=== PATIENT | female | born 1975 | race Two or more races ===

== ENCOUNTER 2024-04-13 17:59 | Emergency (ER) | payer OTHER, SELFPAY ==
[2024-04-13 18:02] VITALS: BP 108/73
--- NOTE | 2024-04-13 20:01 | ED.MUSCINJ ---
HPI-Injury
General
Chief Complaint: Musculo-Skeletal Complaint
Source: patient
Exam Limitations: none
Time Seen by Provider: 04/13/24 19:52
History of Present Illness-Injury
Initial Injury comments:
48-year-old otherwise healthy female presents complaining of left ankle and foot pain starting today. She twisted her ankle while at work. She noted progressively worsening pain and swelling to left foot and ankle. She is now unable to bear
weight secondary to pain. No other complaints at this time
Phy Exam
Physical Exam
Physical Exam:
General: Well-appearing female no acute respiratory distress
Musculoskeletal exam: Left ankle swollen tender inferior to the distal fibula laterally and slightly tender over the medial aspect of the ankle. She has good plantarflexion dorsiflexion is to 90 degrees. The foot and midfoot are nontender. The
knee is nontender
Vascular: Left foot is warm to the touch with brisk capillary refill to the toes
Ext: no cyanosis
Injury Course
Orders/Labs/Results
Orders:
Orders
04/13/24 18:05
Ankle, left 3 view CR [CR Ankle - Left Min 3 Views ] Urgent
Comment:
Reason For Exam: fall, pain , swelling
Foot, Left 3 View [CR Foot - Left Min 3 Views] Urgent
Comment:
Reason For Exam: fall, pain, swelling
04/13/24 20:00
Ortho Boot Left- Treatment ONCE
Short or tall?: Tall
MDM/Problems Addressed
Differential Diagnosis Includes:
Left foot and ankle pain. Consider sprain versus fracture wrist dislocation I personally visualized x-rays of the left ankle and foot which are negative for acute fracture or dislocation. Suspect underlying sprain. The patient is unable to bear
weight secondary to the pain. Will fit for orthopedic boot and have her follow-up with orthopedics.
*Critical Care Note
Total Time (30-74mins, 75-104mins- exclusive of procedures): Not Applicable
ED Attending Note
-
Portions of this chart may have been created with voice recognition software.� Occasional wrong word or��sound alike� substitutions may have occurred due to the inherent limitations of voice recognition software.
Discharge Plan
Departure
Patient Disposition: Home (Routine Discharge)
Date of Disposition: 04/13/24
Time of Disposition: 20:05
Patient with high blood pressure during this ER visit?: No
Discharge Problem:
Ankle sprain
Instructions: Muscle and Bone Pain (DC)
Prescriptions:
No Action
Flovent Diskus 50 mcg/actuation blister with device
2 inh inhalation BID Qty: 60 0RF
Referrals:
NONE,* [Family Provider] -
Natanael Crespo MD [Active] -
Activity Restrictions/Additional Instructions:
Rest. Elevate for swelling. Use boot for ambulation. You may use ibuprofen or Tylenol for pain. Follow-up with orthopedics for further evaluation.
Interventions
Interventions:
*Risk Screen - Suicide Last Done: 04/13/24 18:02
*General Assessment Last Done: 04/13/24 18:02
*Neglect/Abuse Screening Last Done: 04/13/24 18:02
ED- Fall Risk Assessment Last Done: 04/13/24 20:06
*Nursing Disposition Last Done: 04/13/24 20:37
ED-Musculoskeletal Assessment Last Done: 04/13/24 20:06
Discharge Date and Time
Discharge Date/Time: 04/13/24 21:02
Print Language: [id number]
[2024-04-13 20:37] VITALS: BP 110/73
== END 2024-04-13 21:02 | disposition home or self-care (01) ==
LOC: EMR 17:59
PROVIDERS: EMERGENCY PHYSICIAN Emergency Medicine
DX: S93.402A Sprain of unspecified ligament of left ankle, initial encounter (principal); X50.1XXA Overexertion from prolonged static or awkward postures, initial encounter; Y93.89 Activity, other specified; Y92.89 Other specified places as the place of occurrence of the external cause; Y99.0 Civilian activity done for income or pay
CPT/HCPCS: 99283; 29515; 73610; 73630

== ENCOUNTER → 2024-07-11 12:40 | Outpatient (REF) | payer OTHER, SELFPAY | LOC: WDC 12:40 | DX: Z12.31 Encounter for screening mammogram for malignant neoplasm of breast (principal) | CPT/HCPCS: 77063; 77067 ==

== ENCOUNTER 2024-09-05 13:51 | Emergency (ER) | payer OTHER, SELFPAY ==
[2024-09-05 13:57] VITALS: BP 126/75
--- NOTE | 2024-09-05 15:25 | ED.GENMED ---
History of Present Illness
General
Chief Complaint: Musculo-Skeletal Complaint
Source: patient
Exam Limitations: none
Time Seen by Provider: 09/05/24 14:10
Nursing documentation reviewed up to this point in time: agreed with
History of Present Illness
History of Present Illness:
Patient is a 49-year-old female who presents to the ER after falling injuring her right wrist. Patient reports she was walking her dog when this occurred. She denies any other complaints. She is left-hand dominant. She denies hitting her head.
Review of Systems
Review of Systems
Allergies reviewed?: Yes
All Other Systems: ROS reviewed and negative except as documented in HPI and ROS
Constitutional: Reports no symptoms
Musculoskeletal: Reports other (Right wrist injury)
Skin: Reports no symptoms
Psychiatric: Reports no symptoms
Phy Exam
General Physical Exam
General Presentation: no apparent distress
General age: appears stated age
General Skin: warm and dry
General Habitus: normal
General Mental: alert
Neurological Exam
Neurological Exam: alert
Musculoskeletal Exam
Musculoskeletal Exam: other (Right wrist with mild deformity obvious swelling strong pulses tender throughout the distal radius; normal distal sensation normal capillary refill)
Skin Exam
Skin Exam: normal color and warm/dry
Psychiatric Exam
Psychiatric Exam: normal mood/affect
Course
Orders/Labs/Results
Orders:
Orders
09/05/24 13:59
CR Wrist - Right Min 3 Views Urgent
Comment:
Reason For Exam: injury, pain
09/05/24 15:33
Ibuprofen [Motrin] 600 mg .ROUTE .STK-MED ONE
09/05/24 15:34
Ibuprofen [Motrin] 600 mg PO NOW STA
09/05/24 16:31
Sling Right-Treatment ONCE
Splints/Slings/Crut- Treatment ONCE
Location: Right
Type of Splint: Volar
09/05/24 17:24
Wrist, Right 2 Views CR [CR Wrist - Right Min 2 Views] Urgent
Comment:
Reason For Exam: trauma post reducction
Vital Signs
Initial and Last Documented VS:
Initial Vital Signs
Temp Pulse Resp BP Pulse Ox
98.0 F 74 16 126/75 99
09/05/24 13:57 09/05/24 13:57 09/05/24 13:57 09/05/24 13:57 09/05/24 13:57
Last Documented Vital Signs
Temp Pulse Resp BP Pulse Ox
98.0 F 85 18 145/80 98
09/05/24 13:57 09/05/24 17:38 09/05/24 17:38 09/05/24 17:38 09/05/24 17:38
Sociology Faculty Member consulted with Physician
Sociology Faculty Member consulted with physician?: Yes
Name of Physician Consulted: sundar
Procedures
Joint/Fracture Reduction
Right Distal Wrist:
Indication for procedure:: right distal angulated and displaced fracture
Procedure completed by: myself
Joint reduced: without anesthesia
Anesthesia/sedation: Other (hematoma block with bupivacaine)
Injury was: closed
Further treatement: needs re-check only
Post reduction exam: stable
Capillary Refill: normal
Normal distal neurovascular exam?: Yes
MDM/Problems Addressed
Differential Diagnosis Includes:
Not limited to fracture, dislocation, sprain
MDM/Problems Addressed:
Patient is a 49-year-old female who fell right wrist and sustained an acute transverse fracture of the distal right metaphysis with displacement and angulation of the distal fracture fragment. Case discussed with ED physician. Case discussed
orthopedics Dr. Mancuso who does suggest we attempt to reduce wrist.
Patient was given a hematoma block and right wrist was reduced with success. Patient tolerated procedure very well. Image was reviewed with orthopedics who is satisfied. Patient was placed in a sugar-tong splint and given sling. She wishes to
take Aleve and Tylenol for discomfort and does not want anything further. She will follow-up with orthopedics next week. Discussed return if any worsening of symptoms.
*Radiology
Radiology exam reviewed: radiology read reviewed
*Pulse Oximetry
Patient hypoxic: no
*Critical Care Note
Total Time (30-74mins, 75-104mins- exclusive of procedures): Not Applicable
Patient Management
Discussion with other providers: Medical Laboratory Scientist (ortho DR. Mancuso )
ED Attending Note
-
Portions of this chart may have been created with voice recognition software.� Occasional wrong word or��sound alike� substitutions may have occurred due to the inherent limitations of voice recognition software.
Discharge Plan
Departure
Patient Disposition: Home (Routine Discharge)
Date of Disposition: 09/05/24
Time of Disposition: 17:54
Patient with high blood pressure during this ER visit?: No
Condition: Fair
Covid-19: Not Applicable
Discharge Problem:
Fracture of wrist
Instructions: Wrist Fracture (DC), Splint Care
Prescriptions:
No Action
Flovent Diskus 50 mcg/actuation blister with device
2 inh inhalation BID Qty: 60 0RF
Referrals:
Mirza Mancuso MD [Active] -
UNKNOWN - PT DOES,NOT KNOW [Family Provider] -
Activity Restrictions/Additional Instructions:
As discussed wear splint for support until seen and evaluated by orthopedics do not wet splint. Call orthopedics Saturday for an appointment in the next several days. Keep elevated as much as possible . No redness, swelling, or the
ice the affected area for 20 minutes at a time several times a day
Ibuprofen every 8 hours with food for discomfort. Return if any worsening of symptoms including cold numb or blue fingers. Wear sling for support throughout the day to keep area elevated however remove sling at night while sleeping.
Interventions
Interventions:
*Risk Screen - Suicide Last Done: 09/05/24 13:57
*General Assessment Last Done: 09/05/24 13:57
*Neglect/Abuse Screening Last Done: 09/05/24 13:57
*ED COVID-19 Vaccine History Last Done: 09/05/24 13:57
*Nursing Disposition Last Done: 09/05/24 18:32
ED-Musculoskeletal Assessment Last Done: 09/05/24 15:12
Discharge Date and Time
Discharge Date/Time: 09/05/24 18:33
Print Language: TELUGU
[2024-09-05] MEDS: MOTRIN 600 MG PO (15:35)
[2024-09-05 17:38] VITALS: BP 145/80
== END 2024-09-05 18:33 | disposition home or self-care (01) ==
LOC: EMR 13:51
PROVIDERS: EMERGENCY PHYSICIAN Emergency Medicine
DX: S52.591A Other fractures of lower end of right radius, initial encounter for closed fracture (principal); W01.0XXA Fall on same level from slipping, tripping and stumbling without subsequent striking against object, initial encounter; Y93.K1 Activity, walking an animal
CPT/HCPCS: 25605; 99284; 64450; 73100; 73110

== ENCOUNTER 2024-09-08 05:54 | Day surgery (SDC) | payer OTHER, SELFPAY ==
[2024-09-08] VITALS (8 sets, daily range): BP systolic 108–133; BP diastolic 59–75; BMI 23.3
[2024-09-08] MEDS: TYLENOL 1000 MG PO (06:27)
[2024-09-08] MEDS: CELEBREX 200 MG PO (06:27)
[2024-09-08] MEDS: NORMOSOL-R/PLASMALYTE-A 1000 IV (06:28)
== END 2024-09-08 09:30 | disposition home or self-care (01) ==
LOC: SDS 05:54
PROVIDERS: ATTENDING PHYSICIAN Orthopaedic Surgery
DX: S52.551A Other extraarticular fracture of lower end of right radius, initial encounter for closed fracture (principal); W19.XXXA Unspecified fall, initial encounter; Y93.K1 Activity, walking an animal
CPT/HCPCS: 25607; 93005; C1713

== ENCOUNTER → 2024-10-06 14:59 | Outpatient (REF) | payer OTHER, SELFPAY | LOC: WDC 14:59 | PROVIDERS: ATTENDING PHYSICIAN Obstetrics & Gynecology | DX: R92.2 Inconclusive mammogram (principal) | CPT/HCPCS: 76641 ==

== ENCOUNTER → 2024-10-10 10:19 | Outpatient (REF) | payer OTHER, SELFPAY | LOC: RCS 10:19 | DX: R94.31 Abnormal electrocardiogram [ECG] [EKG] (principal) | CPT/HCPCS: 93005; 93306 ==

== ENCOUNTER → 2024-10-13 15:04 | Outpatient (REF) | payer OTHER, SELFPAY | LOC: HWRAD 15:04 | DX: S62.91XA Unspecified fracture of right hand, initial encounter for closed fracture (principal) | CPT/HCPCS: 77080 ==

== ENCOUNTER → 2024-12-10 13:37 | Outpatient (REF) | payer OTHER, SELFPAY | LOC: MRI 3T 13:37 | PROVIDERS: ATTENDING PHYSICIAN Physician Assistant Surgical; FAMILY PHYSICIAN Internal Medicine | DX: M25.511 Pain in right shoulder (principal) | CPT/HCPCS: 23350; 73040; 73222 ==